=== PATIENT | male | born 1940 | race American Indian/Alaskan Native ===

== ENCOUNTER 2017-11-29 14:36 | Emergency (ER) | payer MEDICARE ==
[2017-11-29 14:45] VITALS: BP 190/97
[2017-11-29] MEDS ORDERED: ZOFRAN ODT PO ONE (18:11)
[2017-11-29] MEDS ORDERED: NORCO 5/325 PO ONE (18:11)
--- NOTE | 2017-11-29 18:16 | Emergency Department Report ---
ED General Adult HPI - General Chief complaint: Fall Stated complaint: BACK/LEG PAIN Time Seen by Provider: 11/29/17 17:38 Source: patient Mode of arrival: Ambulatory Limitations: No Limitations - History of Present Illness Initial comments: She presents to the emergency department with the complaint of right hip,lower back pain and tailbone pain status post a fall from a ladder last . Patient states the ladder was approximately 2 feet off the ground he denies hitting his head or any loss of consciousness. 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 -: Sudden Location: back, lower extremity Radiation: non-radiation Severity scale (0 -10): 5 Quality: sharp Consistency: constant Improves with: rest Worsens with: movement Associated Symptoms: denies other symptoms - Related Data Previous Rx's Medication Instructions Recorded Last Taken Type HYDROcodone/APAP 5-325 [[place] 1 each PO Q6HR PRN #20 tablet 11/29/17 Unknown Rx 5/325] Allergies Allergy/AdvReac Type Severity Reaction Status Date / Time No Known Allergies Allergy Unverified 11/29/17 14:46 ED Review of Systems ROS: Stated complaint: BACK/LEG PAIN Other details as noted in HPI Comment: All other systems reviewed and negative Constitutional: denies: chills, fever Eyes: denies: eye pain, eye discharge, vision change ENT: denies: ear pain, throat pain Respiratory: denies: cough, shortness of breath, wheezing Cardiovascular: denies: chest pain, palpitations Endocrine: no symptoms reported Gastrointestinal: denies: abdominal pain, nausea, diarrhea Genitourinary: denies: urgency, dysuria Musculoskeletal: back pain. denies: joint swelling, arthralgia Skin: denies: rash, lesions Neurological: denies: headache, weakness, paresthesias Psychiatric: denies: anxiety, depression Hematological/Lymphatic: denies: easy bleeding, easy bruising ED Past Medical Hx - Past Medical History Hx Hypertension: Yes Hx Arthritis: Yes (RA) Additional medical history: neuropathy,PVD - Surgical History Past Surgical History?: No Additional Surgical History: LLL stent r/t PVD - Social History Smoking Status: Never Smoker Substance Use Type: None - Medications Home Medications: Home Medications Medication Instructions Recorded Confirmed Last Taken Type HYDROcodone/APAP 5-325 [[place] 1 each PO Q6HR PRN #20 tablet 11/29/17 Unknown Rx 5/325] ED Physical Exam - General Limitations: No Limitations General appearance: alert, in no apparent distress - Head Head exam: Present: atraumatic, normocephalic - Eye Eye exam: Present: normal appearance - ENT ENT exam: Present: mucous membranes moist - Neck Neck exam: Present: normal inspection, full ROM. Absent: tenderness - Respiratory Respiratory exam: Present: normal lung sounds bilaterally. Absent: respiratory distress - Cardiovascular Cardiovascular Exam: Present: regular rate, normal rhythm. Absent: systolic murmur, diastolic murmur, rubs, gallop - GI/Abdominal GI/Abdominal exam: Present: soft, normal bowel sounds. Absent: distended, tenderness - Rectal Rectal exam: Present: deferred - Extremities Exam Extremities exam: Present: other (mild tenderness palpation of the right hip) - Back Exam Back exam: Present: normal inspection, other (tenderness palpation of the paralumbar region) - Neurological Exam Neurological exam: Present: alert, oriented X3 - Psychiatric Psychiatric exam: Present: normal affect, normal mood - Skin Skin exam: Present: warm, dry, intact, normal color. Absent: rash ED Course Vital Signs 11/29/17 11/29/17 11/29/17 14:39 18:18 19:15 Temperature 98.9 F Pulse Rate 78 Respiratory 18 16 18 Rate Blood Pressure 190/97 O2 Sat by Pulse 99 Oximetry ED Medical Decision Making - Medical Decision Making Discussed results with patient including the lumbar spine results X-ray results were reviewed and is not definite and this is an acute compression fracture OR IF it's indeterminate in age. Patient denies ever having any significant back pain prior to this Critical care attestation.: If time is entered above; I have spent that time in minutes in the direct care of this critically ill patient, excluding procedure time. ED Disposition Clinical Impression: Compression fracture of lumbar vertebra, Hip pain, right Disposition: DC-01 TO HOME OR SELFCARE Is pt being admited?: No Does the pt Need Aspirin: No Condition: Stable Instructions: Vertebral Compression Fracture (ED) Additional Instructions: return if worse Prescriptions: HYDROcodone/APAP 5-325 [[place] 5/325] 1 each PO Q6HR PRN #20 tablet PRN Reason: Pain Referrals: ZEFERINO STEWART MD [Primary Care Provider] - 3-5 Days PANCHITO DSOUZA MD [Staff Physician] - 3-5 Days Time of Disposition: 20:10
--- NOTE | 2017-11-29 19:54 | XRay Report ---
FINAL REPORT EXAM: XR HIP 2-3V RT HISTORY: pain s/p fall TECHNIQUE: Right hip and AP pelvis PRIORS: None. FINDINGS: No fracture identified. No dislocation seen. Femoral head maintains a normal contour. Joint spaces within normal limits. Adjacent bony pelvis is unremarkable IMPRESSION: Negative hip series
--- NOTE | 2017-11-29 20:04 | XRay Report ---
FINAL REPORT EXAM: XR SPINE LUMBOSACRAL 2-3V HISTORY: pain s/p fall TECHNIQUE: Lumbar spine three views PRIORS: None. FINDINGS: There is compression fracture L4 with approximately 40 percent loss of height centrally. Margins are distinct no definitive cortical disruption identified. No evidence for retropulsion. Noted are marked hypertrophic degenerative facet joint changes throughout the lumbar spine most prominent from L3-L4 through L5-S1. SI joints are intact. Posterior elements appear intact. 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
== END 2017-11-29 20:21 | disposition home or self-care (01) ==
LOC: ED 14:36
DX: S32.049A Unspecified fracture of fourth lumbar vertebra, initial encounter for closed fracture (principal); I10 Essential (primary) hypertension; M19.90 Unspecified osteoarthritis, unspecified site; G62.9 Polyneuropathy, unspecified; W11.XXXA Fall on and from ladder, initial encounter; Y93.89 Activity, other specified; Y92.89 Other specified places as the place of occurrence of the external cause; Y99.8 Other external cause status
CPT/HCPCS: 72100; 99283; Q0162

== ENCOUNTER 2017-12-23 09:54 | Outpatient (CLI) | payer MEDICARE ==
[2017-12-23] MEDS ORDERED: XYLOCAINE TOPICAL 4% TP ONE ×3 (10:51→16:04)
[2017-12-23] MEDS ORDERED: DAKIN'S FULL STRENGTH ONE (10:54)
[2017-12-23] MEDS ORDERED: AD OINTMENT TP ONE (12:01)
[2017-12-23] MEDS ORDERED: DAKIN'S FULL STRENGTH TP ONE (16:04)
[2017-12-30] MEDS ORDERED: DAKIN'S FULL STRENGTH TP ONE (13:42)
== END 2017-12-23 09:55 | disposition home or self-care (01) ==
LOC: WOUND 09:54
PROVIDERS: ATTEND Surgery
DX: I70.202 Unspecified atherosclerosis of native arteries of extremities, left leg (principal); L97.222 Non-pressure chronic ulcer of left calf with fat layer exposed; M19.90 Unspecified osteoarthritis, unspecified site; I87.2 Venous insufficiency (chronic) (peripheral); I10 Essential (primary) hypertension
CPT/HCPCS: A6250

== ENCOUNTER 2018-01-06 10:33 | Outpatient (CLI) | payer MEDICARE ==
[2018-01-06] MEDS ORDERED: XYLOCAINE TOPICAL 4% TP ONE ×2 (11:13→11:17)
[2018-01-08] MEDS ORDERED: AD OINTMENT TP SCH (10:00)
== END 2018-01-06 10:34 | disposition home or self-care (01) ==
LOC: WOUND 10:33
PROVIDERS: ATTEND Surgery
DX: I70.202 Unspecified atherosclerosis of native arteries of extremities, left leg (principal); L97.222 Non-pressure chronic ulcer of left calf with fat layer exposed; M19.90 Unspecified osteoarthritis, unspecified site; I87.2 Venous insufficiency (chronic) (peripheral); I10 Essential (primary) hypertension

== ENCOUNTER 2018-01-14 07:45 | Outpatient (CLI) | payer MEDICARE ==
[2018-01-14] MEDS ORDERED: XYLOCAINE TOPICAL 4% TP ONE ×2 (07:54→08:33)
== END 2018-01-14 07:46 | disposition home or self-care (01) ==
LOC: WOUND 07:45
PROVIDERS: ATTEND Surgery
DX: I70.202 Unspecified atherosclerosis of native arteries of extremities, left leg (principal); L97.222 Non-pressure chronic ulcer of left calf with fat layer exposed; M19.90 Unspecified osteoarthritis, unspecified site; I87.2 Venous insufficiency (chronic) (peripheral); I10 Essential (primary) hypertension
CPT/HCPCS: 29581

== ENCOUNTER 2018-01-17 08:56 | Outpatient (CLI) | payer MEDICARE | END 2018-01-17 08:57 | disposition home or self-care (01) | LOC: WOUND 08:56 | PROVIDERS: ATTEND Surgery | DX: I70.202 Unspecified atherosclerosis of native arteries of extremities, left leg (principal); L97.222 Non-pressure chronic ulcer of left calf with fat layer exposed; M19.90 Unspecified osteoarthritis, unspecified site; I87.2 Venous insufficiency (chronic) (peripheral); I10 Essential (primary) hypertension | CPT/HCPCS: 29581 ==

== ENCOUNTER 2018-01-20 10:59 | Outpatient (CLI) | payer MEDICARE ==
[2018-01-20] MEDS ORDERED: XYLOCAINE TOPICAL 4% TP ONE ×2 (11:12→11:46)
== END 2018-01-20 11:00 | disposition home or self-care (01) ==
LOC: WOUND 10:59
PROVIDERS: ATTEND Surgery
DX: I70.202 Unspecified atherosclerosis of native arteries of extremities, left leg (principal); L97.222 Non-pressure chronic ulcer of left calf with fat layer exposed; M19.90 Unspecified osteoarthritis, unspecified site; I87.2 Venous insufficiency (chronic) (peripheral); I10 Essential (primary) hypertension
CPT/HCPCS: 29581

== ENCOUNTER 2018-01-24 10:31 | Outpatient (CLI) | payer MEDICARE | END 2018-01-24 10:32 | disposition home or self-care (01) | LOC: WOUND 10:31 | PROVIDERS: ATTEND Surgery | DX: I70.202 Unspecified atherosclerosis of native arteries of extremities, left leg (principal); L97.222 Non-pressure chronic ulcer of left calf with fat layer exposed; M19.90 Unspecified osteoarthritis, unspecified site; I87.2 Venous insufficiency (chronic) (peripheral); I10 Essential (primary) hypertension | CPT/HCPCS: 29581 ==

== ENCOUNTER 2018-01-27 10:44 | Outpatient (CLI) | payer MEDICARE ==
[2018-01-27] MEDS ORDERED: XYLOCAINE TOPICAL 4% TP ONE ×2 (10:58→11:04)
[2018-01-27] MEDS ORDERED: AD OINTMENT TP PRN (10:59)
== END 2018-01-27 10:45 | disposition home or self-care (01) ==
LOC: WOUND 10:44
PROVIDERS: ATTEND Surgery
DX: I70.202 Unspecified atherosclerosis of native arteries of extremities, left leg (principal); L97.222 Non-pressure chronic ulcer of left calf with fat layer exposed; M19.90 Unspecified osteoarthritis, unspecified site; I87.2 Venous insufficiency (chronic) (peripheral); I10 Essential (primary) hypertension
CPT/HCPCS: 29581; A6250

== ENCOUNTER 2018-01-31 11:02 | Outpatient (CLI) | payer MEDICARE | END 2018-01-31 11:03 | disposition home or self-care (01) | LOC: WOUND 11:02 | PROVIDERS: ATTEND Surgery | DX: I70.202 Unspecified atherosclerosis of native arteries of extremities, left leg (principal); L97.222 Non-pressure chronic ulcer of left calf with fat layer exposed; M19.90 Unspecified osteoarthritis, unspecified site; I87.2 Venous insufficiency (chronic) (peripheral) | CPT/HCPCS: 29581 ==

== ENCOUNTER 2018-02-10 11:06 | Outpatient (CLI) | payer MEDICARE ==
[2018-02-10] MEDS ORDERED: XYLOCAINE TOPICAL 4% TP ONE ×2 (11:30→15:23)
== END 2018-02-10 11:07 | disposition home or self-care (01) ==
LOC: WOUND 11:06
PROVIDERS: ATTEND Surgery
DX: I70.202 Unspecified atherosclerosis of native arteries of extremities, left leg (principal); L97.222 Non-pressure chronic ulcer of left calf with fat layer exposed; M19.90 Unspecified osteoarthritis, unspecified site; I87.2 Venous insufficiency (chronic) (peripheral)
CPT/HCPCS: 29581

== ENCOUNTER 2018-02-14 11:47 | Outpatient (CLI) | payer MEDICARE | END 2018-02-14 11:48 | disposition home or self-care (01) | LOC: WOUND 11:47 | PROVIDERS: ATTEND Surgery | DX: I70.202 Unspecified atherosclerosis of native arteries of extremities, left leg (principal); L97.222 Non-pressure chronic ulcer of left calf with fat layer exposed; M19.90 Unspecified osteoarthritis, unspecified site; I87.2 Venous insufficiency (chronic) (peripheral) | CPT/HCPCS: 29581 ==

== ENCOUNTER 2018-06-24 12:17 | Outpatient (CLI) | payer MEDICARE ==
--- NOTE | 2018-06-24 15:03 | XRay Report ---
METASTATIC SURVEY:06/24/18 CLINICAL: Restaging evaluation COMPARISON: Right hip and lumbar spine x-rays from 11/29/17 FINDINGS: Lateral skull: 2 subcentimeter lucent skull lesions. Cervical spine: Negative except for extensive degenerative change. Thoracic spine: A single lucent lesion in the T11 vertebral body and a less definitive lucency in the T10 vertebral body. Lumbar spine: A severe L4 compression fracture with greater loss of height in the vertebral body since 11/29/17. A lucent lesion in the posterior aspect of vertebral body has a sclerotic rim. Chest and ribs: Negative Bilateral humerus: Negative Pelvis and hips: Negative Bilateral femur: Negative IMPRESSION: 1. Suspicious lucent lesions of the skull and thoracic spine. 2. Severe L4 mid wedge compression fracture with greater loss in height of the vertebral body since the last exam. The lucent lesion of the L4 vertebral body is of uncertain significance since it has a sclerotic rim.
== END 2018-06-24 12:18 | disposition home or self-care (01) ==
LOC: SPVIMAG 12:17
PROVIDERS: ATTEND Internal Medicine Hematology & Oncology
DX: M48.56XA Collapsed vertebra, not elsewhere classified, lumbar region, initial encounter for fracture (principal); D47.2 Monoclonal gammopathy; I10 Essential (primary) hypertension; M19.90 Unspecified osteoarthritis, unspecified site
CPT/HCPCS: 77074

== ENCOUNTER 2019-12-20 09:50 | Emergency (ER) | payer MEDICARE ==
[2019-12-20 10:33] VITALS: BP 148/72
--- NOTE | 2019-12-20 12:25 | Emergency Department Report ---
ED General Adult HPI - General Chief complaint: Skin Rash Stated complaint: POSBOB OAK OUTBREAK PUI?: No Time Seen by Provider: 12/20/19 11:54 Source: patient, RN notes reviewed Mode of arrival: Ambulatory Limitations: No Limitations - History of Present Illness Initial comments: The patient was evaluated in the emergency department for symptoms described in the history of present illness. He/she was evaluated in the context of the global COVID-19 pandemic, which necessitated consideration that the patient might be at risk for infection with the virus that causes COVID-19. Institutional protocols and algorithms that pertain to the evaluation of patients at risk for COVID-19 are in a state of rapid change based on infor mation released by regulatory bodies including the CDC and federal and state organizations. These policies and algorithms were followed during the patient's care in the emergency department. Please note that these policies, procedures and recommendations changed on a rapid basis. The patient is a pleasant [id number], 79-year-old gentleman, who has a history of hypertension, who presents to this ER with a complaint of nontraumatic bilateral upper extremity rash, that started in his right elbow, in the antecubital fossa, migrated distally, involve the left arm in a similar fashion, and also involves the left lower quadrant of his abdomen. He believes that he touched poison oak, or poison sumac this weekend. He believes that his contact with the plant has incited this rash. However, this is the first time he has had a rash associated with the plan. He denies headache, neck pain, chest pain, abdominal pain, oral/tongue/mouth pain, rectal pain, and dysuria. He does not have physical pain. He denies weakness and numbness. The rash is rather itchy. He states this is never happened to him before. His symptoms are constant, do not radiate anywhere, and they do not have exacerbating or relieving factors that he is aware of. -: days(s) Location: abdomen, left, right, upper extremity Radiation: non-radiation Quality: other (Pruritic and itchy) Consistency: constant Improves with: none Worsens with: none Associated Symptoms: denies other symptoms - Related Data Previous Rx's Medication Instructions Recorded Last Taken Type HYDROcodone/APAP 5-325 [[place] 1 each PO Q6HR PRN #20 tablet 11/29/17 Unknown Rx 5/325] Clobetasol Propionate [Clobex 1 applicatio TP BID #1 lotion 12/20/19 Unknown Rx 0.05%] Allergies Allergy/AdvReac Type Severity Reaction Status Date / Time No Known Allergies Allergy Unverified 11/29/17 14:46 ED Review of Systems ROS: Stated complaint: POSION OAK OUTBREAK Other details as noted in HPI Constitutional: denies: fever Eyes: denies: eye discharge ENT: denies: congestion Cardiovascular: denies: chest pain, syncope Gastrointestinal: denies: abdominal pain, hematemesis, melena, hematochezia Genitourinary: denies: dysuria Musculoskeletal: denies: arthralgia, myalgia Skin: rash, change in color Neurological: denies: weakness Psychiatric: as per HPI ED Past Medical Hx - Past Medical History Hx Hypertension: Yes Hx Arthritis: Yes Additional medical history: neuropathy,PVD - Surgical History Additional Surgical History: LLL stent r/t PVD - Social History Smoking Status: Never Smoker - Medications Home Medications: Home Medications Medication Instructions Recorded Confirmed Last Taken Type HYDROcodone/APAP 5-325 [[place] 1 each PO Q6HR PRN #20 tablet 11/29/17 Unknown Rx 5/325] Clobetasol Propionate [Clobex 1 applicatio TP BID #1 lotion 12/20/19 Unknown Rx 0.05%] ED Physical Exam - General Limitations: No Limitations General appearance: alert, in no apparent distress - Head Head exam: Present: atraumatic, normocephalic - Eye Eye exam: Present: normal appearance, EOMI. Absent: nystagmus - ENT ENT exam: Present: normal exam, normal orophraynx, mucous membranes moist, normal external ear exam - Neck Neck exam: Present: normal inspection, full ROM. Absent: tenderness, meningismus - Respiratory Respiratory exam: Present: normal lung sounds bilaterally. Absent: respiratory distress, wheezes, rales, rhonchi, stridor - Cardiovascular Cardiovascular Exam: Present: regular rate, normal rhythm, normal heart sounds. Absent: bradycardia, tachycardia, irregular rhythm, systolic murmur, diastolic murmur, rubs, gallop - GI/Abdominal GI/Abdominal exam: Present: soft, normal bowel sounds, other (Patient has nontender scaly lesions noted in the left lower quadrant, which are nonblanching, without vesicles, bullae, or tenderness). Absent: distended, tenderness, guarding, rebound, rigid, pulsatile mass - Rectal Rectal exam: Present: deferred - Extremities Exam Extremities exam: Present: full ROM, other (2+ pulses noted in the bilateral upper extremities. There is no long bony tenderness. The muscular compartments are soft. There is no pain with passive range of motion in bilateral upper or lower extremities. 2+ pulses appreciated in the right lower extremity.). Absent: normal inspection (Patient has erythematous nontender nonblanching lesions on her bilateral upper extremities and antecubital fossa. There are nontender fluid-filled bullae noted on her bilateral upper extremities distal to the elbow. Muscular compartments are soft. Full range of motion in the bilateral hands/digits/elbow/wrist.) - Back Exam Back exam: Present: normal inspection, full ROM. Absent: tenderness, CVA tenderness (R), CVA tenderness (L), paraspinal tenderness, vertebral tenderness - Neurological Exam Neurological exam: Present: alert, oriented X3, other (No facial droop. Tongue midline. Extraocular movements intact bilaterally. Facial sensation intact to light touch in V1, V2, V3 distribution bilaterally. 5 and a 5 strength in 4 extremities. Sensation intact to light touch in 4 extremities.) - Psychiatric Psychiatric exam: Present: normal affect, normal mood - Skin Skin exam: Present: warm, rash, erythema, other (Bullae are noted). Absent: vesicles, petechiae, pallor, abrasion, ecchymosis ED Course Vital Signs 12/20/19 10:27 Temperature 98.1 F Pulse Rate 77 Respiratory 18 Rate Blood Pressure 148/72 O2 Sat by Pulse 99 Oximetry ED Medical Decision Making - Medical Decision Making Differential diagnosis, including but not limited to: Thrombocytopenia, anemia, renal insufficiency, hepatic insufficiency, bullous pemphigoid, contact dermat itis Assessment and plan: 79-year-old gentleman who is afebrile, with reassuring vital signs, who is clinically sober, presenting with excoriated rash on his bilateral upper extremities and bullae. He is neurovascularly intact, does not have pain with passive range of motion, and has soft compartments. Pemphigoid versus extreme contact dermatitis are likely diagnoses. He denies oral pain, rectal pain, urinary symptoms, and he further endorses that he is not taking any medications except for as needed Benadryl, and an JEFFREY inhibitor for hypertension. I did recommend screening laboratory studies to assess for blood counts, renal and hepatic function. However, the patient is refusing this. The patient is alert and oriented x3, clinically sober and exhibits decision-making capacity. The risks of an incomplete ER evaluation, including , disability, paralysis, loss of quality of life were discussed with the patient. He verbalized understanding in his own words. We will start him on topical steroids. He is instructed to follow-up with an outpatient primary care doctor or poultry helper. The patient understands that he may return to the emergency room right away if and when he changes his mind. Patient was advised to follow-up with an outpatient primary care doctor or poultry helper as soon as possible. Return precautions were reviewed. Critical care attestation.: If time is entered above; I have spent that time in minutes in the direct care of this critically ill patient, excluding procedure time. ED Disposition Clinical Impression: Rash and nonspecific skin eruption Disposition: LEFT AGAINST MED ADVICE Is pt being admited?: No Does the pt Need Aspirin: No Condition: Undetermined Instructions: Contact Dermatitis (ED) Additional Instructions: As we discussed, you have left the hospital/emergency room AGAINST MEDICAL ADVICE. By leaving, you risked , disability, paralysis, permanent loss of quality of life. The ER is open 24 hours a day, 7 days a week. It never closes. Please return to the emergency room right away if and when you change your mind. If you decide not to return to the emergency room, please follow-up with the listed physician referrals as soon as possible. Avoid consumption of Motrin, ibuprofen, Naprosyn, Aleve. Recommend that patient follow-up with a primary care doctor outpatient poultry helper as soon as possible. Avoid consumption of alcohol. Avoid contact/exposure with plants such as poison oak, poison sumac, poison judy. Uncertain if patient has contact dermatitis or bullous pemphigoid, and will need to follow-up with a poultry helper to clarify diagnosis as soon as possible. Prescriptions: Clobetasol Propionate [Clobex 0.05%] 1 applicatio TP BID #1 lotion Referrals: [facility] [Provider Group] - 3-5 Days [facility] [Provider Group] - 3-5 Days
[2019-12-20] MEDS ORDERED: CLOBETASOL 0.05% CREAM 15 GM TP STA (14:56)
== END 2019-12-20 15:58 | disposition left against medical advice (07) ==
LOC: ED 09:50
DX: R21 Rash and other nonspecific skin eruption (principal); I10 Essential (primary) hypertension; M19.90 Unspecified osteoarthritis, unspecified site; Z79.899 Other long term (current) drug therapy
CPT/HCPCS: 99282

== ENCOUNTER 2020-12-04 08:16 | Outpatient (CLI) | payer MEDICARE, MEDICAID ==
[2020-12-04] MEDS ORDERED: LIDOCAINE (4%) 40 MG/ML TOPICAL SOLN 50 ML BOTTLE TP SCH (09:00)
== END 2020-12-04 08:17 | disposition home or self-care (01) ==
LOC: WOUND 08:16
PROVIDERS: ATTEND Surgery
DX: I87.312 Chronic venous hypertension (idiopathic) with ulcer of left lower extremity (principal); L97.822 Non-pressure chronic ulcer of other part of left lower leg with fat layer exposed; I10 Essential (primary) hypertension; M19.90 Unspecified osteoarthritis, unspecified site; Z72.89 Other problems related to lifestyle
CPT/HCPCS: 11042; 11045; G0463; 99214

== ENCOUNTER 2020-12-11 09:29 | Outpatient (CLI) | payer MEDICARE, MEDICAID ==
[2020-12-11] MEDS ORDERED: LIDOCAINE (4%) 40 MG/ML TOPICAL SOLN 50 ML BOTTLE TP ONE (10:06)
== END 2020-12-11 09:30 | disposition home or self-care (01) ==
LOC: WOUND 09:29
PROVIDERS: ATTEND Surgery
DX: I87.312 Chronic venous hypertension (idiopathic) with ulcer of left lower extremity (principal); L97.822 Non-pressure chronic ulcer of other part of left lower leg with fat layer exposed; M19.90 Unspecified osteoarthritis, unspecified site; Z72.89 Other problems related to lifestyle

== ENCOUNTER 2020-12-18 09:37 | Outpatient (CLI) | payer MEDICARE, MEDICAID ==
[2020-12-18] MEDS ORDERED: LIDOCAINE (4%) 40 MG/ML TOPICAL SOLN 50 ML BOTTLE TP SCH (10:00)
== END 2020-12-18 09:38 | disposition home or self-care (01) ==
LOC: WOUND 09:37
PROVIDERS: ATTEND Surgery
DX: I87.312 Chronic venous hypertension (idiopathic) with ulcer of left lower extremity (principal); L97.822 Non-pressure chronic ulcer of other part of left lower leg with fat layer exposed; M19.90 Unspecified osteoarthritis, unspecified site; Z72.89 Other problems related to lifestyle

== ENCOUNTER 2020-12-25 09:27 | Outpatient (CLI) | payer MEDICARE, MEDICAID ==
[2020-12-25] MEDS ORDERED: SODIUM HYPOCHLORITE, DAKIN'S FULL STRENGTH (0.5%) 473 ML TOPICAL SOLN TP ONE (10:01)
[2020-12-25] MEDS ORDERED: LIDOCAINE (4%) 40 MG/ML TOPICAL SOLN 50 ML BOTTLE TP ONE (10:01)
== END 2020-12-25 09:28 | disposition home or self-care (01) ==
LOC: WOUND 09:27
PROVIDERS: ATTEND Surgery
DX: I87.312 Chronic venous hypertension (idiopathic) with ulcer of left lower extremity (principal); L97.822 Non-pressure chronic ulcer of other part of left lower leg with fat layer exposed; M19.90 Unspecified osteoarthritis, unspecified site; Z72.89 Other problems related to lifestyle

== ENCOUNTER 2021-01-01 09:07 | Outpatient (CLI) | payer MEDICARE, MEDICAID ==
[2021-01-01] MEDS ORDERED: LIDOCAINE (4%) 40 MG/ML TOPICAL SOLN 50 ML BOTTLE TP ONE (09:48)
[2021-01-01] MEDS ORDERED: SODIUM HYPOCHLORITE, DAKIN'S FULL STRENGTH (0.5%) 473 ML TOPICAL SOLN TP SCH (10:30)
== END 2021-01-01 09:08 | disposition home or self-care (01) ==
LOC: WOUND 09:07
PROVIDERS: ATTEND Surgery
DX: I87.312 Chronic venous hypertension (idiopathic) with ulcer of left lower extremity (principal); L97.822 Non-pressure chronic ulcer of other part of left lower leg with fat layer exposed; M19.90 Unspecified osteoarthritis, unspecified site; Z72.89 Other problems related to lifestyle

== ENCOUNTER 2021-01-08 09:37 | Outpatient (CLI) | payer MEDICARE, MEDICAID ==
[2021-01-08] MEDS ORDERED: LIDOCAINE (4%) 40 MG/ML TOPICAL SOLN 50 ML BOTTLE TP ONE (09:49)
== END 2021-01-08 09:38 | disposition home or self-care (01) ==
LOC: WOUND 09:37
PROVIDERS: ATTEND Surgery
DX: I87.312 Chronic venous hypertension (idiopathic) with ulcer of left lower extremity (principal); L97.822 Non-pressure chronic ulcer of other part of left lower leg with fat layer exposed; M19.90 Unspecified osteoarthritis, unspecified site; Z72.89 Other problems related to lifestyle

== ENCOUNTER 2021-01-15 09:36 | Outpatient (CLI) | payer MEDICARE, MEDICAID ==
[2021-01-15] MEDS ORDERED: LIDOCAINE (4%) 40 MG/ML TOPICAL SOLN 50 ML BOTTLE TP ONE (09:51)
== END 2021-01-15 09:37 | disposition home or self-care (01) ==
LOC: WOUND 09:36
PROVIDERS: ATTEND Surgery
DX: I87.312 Chronic venous hypertension (idiopathic) with ulcer of left lower extremity (principal); L97.822 Non-pressure chronic ulcer of other part of left lower leg with fat layer exposed; M19.90 Unspecified osteoarthritis, unspecified site; Z72.89 Other problems related to lifestyle

== ENCOUNTER 2021-01-22 09:55 | Outpatient (CLI) | payer MEDICARE, MEDICAID ==
[2021-01-22] MEDS ORDERED: LIDOCAINE (4%) 40 MG/ML TOPICAL SOLN 50 ML BOTTLE TP ONE (09:58)
== END 2021-01-22 09:56 | disposition home or self-care (01) ==
LOC: WOUND 09:55
PROVIDERS: ATTEND Surgery
DX: I87.312 Chronic venous hypertension (idiopathic) with ulcer of left lower extremity (principal); L97.822 Non-pressure chronic ulcer of other part of left lower leg with fat layer exposed; M19.90 Unspecified osteoarthritis, unspecified site; Z72.89 Other problems related to lifestyle
CPT/HCPCS: 97597; 97598

== ENCOUNTER 2021-01-29 09:29 | Outpatient (CLI) | payer MEDICARE, MEDICAID ==
[2021-01-29] MEDS ORDERED: LIDOCAINE (4%) 40 MG/ML TOPICAL SOLN 50 ML BOTTLE TP SCH (13:30)
== END 2021-01-29 09:30 | disposition home or self-care (01) ==
LOC: WOUND 09:29
PROVIDERS: ATTEND Surgery
DX: I87.312 Chronic venous hypertension (idiopathic) with ulcer of left lower extremity (principal); L97.822 Non-pressure chronic ulcer of other part of left lower leg with fat layer exposed; M19.90 Unspecified osteoarthritis, unspecified site; Z72.89 Other problems related to lifestyle

== ENCOUNTER 2021-02-05 09:47 | Outpatient (CLI) | payer MEDICARE ==
[2021-02-05] MEDS ORDERED: LIDOCAINE (4%) 40 MG/ML TOPICAL SOLN 50 ML BOTTLE TP ONE (10:05)
== END 2021-02-05 09:48 | disposition home or self-care (01) ==
LOC: WOUND 09:47
PROVIDERS: ATTEND Surgery
DX: I87.312 Chronic venous hypertension (idiopathic) with ulcer of left lower extremity (principal); L97.822 Non-pressure chronic ulcer of other part of left lower leg with fat layer exposed; M19.90 Unspecified osteoarthritis, unspecified site; Z72.89 Other problems related to lifestyle

== ENCOUNTER 2021-02-12 09:35 | Outpatient (CLI) | payer MEDICARE, MEDICAID ==
[2021-02-12] MEDS ORDERED: LIDOCAINE (4%) 40 MG/ML TOPICAL SOLN 50 ML BOTTLE TP ONE (10:00)
== END 2021-02-12 09:36 | disposition home or self-care (01) ==
LOC: WOUND 09:35
PROVIDERS: ATTEND Surgery
DX: I87.312 Chronic venous hypertension (idiopathic) with ulcer of left lower extremity (principal); L97.822 Non-pressure chronic ulcer of other part of left lower leg with fat layer exposed; M19.90 Unspecified osteoarthritis, unspecified site; Z72.89 Other problems related to lifestyle

== ENCOUNTER 2021-02-19 10:39 | Outpatient (CLI) | payer MEDICARE, MEDICAID ==
[2021-02-19] MEDS ORDERED: LIDOCAINE (4%) 40 MG/ML TOPICAL SOLN 50 ML BOTTLE TP SCH (11:00)
== END 2021-02-19 10:40 | disposition home or self-care (01) ==
LOC: WOUND 10:39
PROVIDERS: ATTEND Surgery
DX: I87.312 Chronic venous hypertension (idiopathic) with ulcer of left lower extremity (principal); L97.822 Non-pressure chronic ulcer of other part of left lower leg with fat layer exposed; M19.90 Unspecified osteoarthritis, unspecified site; Z72.89 Other problems related to lifestyle

== ENCOUNTER 2021-02-26 10:30 | Outpatient (CLI) | payer MEDICARE, MEDICAID ==
[2021-02-26] MEDS ORDERED: LIDOCAINE (4%) 40 MG/ML TOPICAL SOLN 50 ML BOTTLE TP ONE (11:05)
== END 2021-02-26 10:31 | disposition home or self-care (01) ==
LOC: WOUND 10:30
PROVIDERS: ATTEND Surgery
DX: I87.312 Chronic venous hypertension (idiopathic) with ulcer of left lower extremity (principal); L97.822 Non-pressure chronic ulcer of other part of left lower leg with fat layer exposed; M19.90 Unspecified osteoarthritis, unspecified site; I87.2 Venous insufficiency (chronic) (peripheral); Z72.89 Other problems related to lifestyle

== ENCOUNTER 2021-03-05 10:36 | Outpatient (CLI) | payer MEDICARE, MEDICAID ==
[2021-03-05] MEDS ORDERED: LIDOCAINE (4%) 40 MG/ML TOPICAL SOLN 50 ML BOTTLE TP ONE (10:37)
== END 2021-03-05 10:37 | disposition home or self-care (01) ==
LOC: WOUND 10:36
PROVIDERS: ATTEND Surgery
DX: I87.312 Chronic venous hypertension (idiopathic) with ulcer of left lower extremity (principal); L97.822 Non-pressure chronic ulcer of other part of left lower leg with fat layer exposed; M19.90 Unspecified osteoarthritis, unspecified site; I87.2 Venous insufficiency (chronic) (peripheral); Z72.89 Other problems related to lifestyle

== ENCOUNTER 2021-03-12 10:22 | Outpatient (CLI) | payer MEDICARE, MEDICAID ==
[2021-03-12] MEDS ORDERED: LIDOCAINE (4%) 40 MG/ML TOPICAL SOLN 50 ML BOTTLE TP ONE (10:23)
== END 2021-03-12 10:23 | disposition home or self-care (01) ==
LOC: WOUND 10:22
PROVIDERS: ATTEND Surgery
DX: I87.312 Chronic venous hypertension (idiopathic) with ulcer of left lower extremity (principal); L97.822 Non-pressure chronic ulcer of other part of left lower leg with fat layer exposed; M19.90 Unspecified osteoarthritis, unspecified site; I87.2 Venous insufficiency (chronic) (peripheral); Z72.89 Other problems related to lifestyle

== ENCOUNTER 2021-03-19 10:40 | Outpatient (CLI) | payer MEDICARE, MEDICAID ==
[2021-03-19] MEDS ORDERED: LIDOCAINE (4%) 40 MG/ML TOPICAL SOLN 50 ML BOTTLE TP ONE (10:48)
== END 2021-03-19 10:41 | disposition home or self-care (01) ==
LOC: WOUND 10:40
PROVIDERS: ATTEND Surgery
DX: I87.312 Chronic venous hypertension (idiopathic) with ulcer of left lower extremity (principal); L97.822 Non-pressure chronic ulcer of other part of left lower leg with fat layer exposed; M19.90 Unspecified osteoarthritis, unspecified site; I87.2 Venous insufficiency (chronic) (peripheral); Z72.89 Other problems related to lifestyle

== ENCOUNTER 2021-03-26 10:28 | Outpatient (CLI) | payer MEDICARE ==
[2021-03-26] MEDS ORDERED: LIDOCAINE (4%) 40 MG/ML TOPICAL SOLN 50 ML BOTTLE TP ONE (10:33)
== END 2021-03-26 10:29 | disposition home or self-care (01) ==
LOC: WOUND 10:28
PROVIDERS: ATTEND Surgery
DX: I87.312 Chronic venous hypertension (idiopathic) with ulcer of left lower extremity (principal); L97.822 Non-pressure chronic ulcer of other part of left lower leg with fat layer exposed; M19.90 Unspecified osteoarthritis, unspecified site; I87.2 Venous insufficiency (chronic) (peripheral); Z72.89 Other problems related to lifestyle

== ENCOUNTER 2021-04-02 10:36 | Outpatient (CLI) | payer MEDICARE ==
[2021-04-02] MEDS ORDERED: LIDOCAINE (4%) 40 MG/ML TOPICAL SOLN 50 ML BOTTLE TP ONE (10:37)
== END 2021-04-02 10:37 | disposition home or self-care (01) ==
LOC: WOUND 10:36
PROVIDERS: ATTEND Surgery
DX: I87.312 Chronic venous hypertension (idiopathic) with ulcer of left lower extremity (principal); L97.822 Non-pressure chronic ulcer of other part of left lower leg with fat layer exposed; M19.90 Unspecified osteoarthritis, unspecified site; I87.2 Venous insufficiency (chronic) (peripheral); Z72.89 Other problems related to lifestyle

== ENCOUNTER 2021-04-09 10:40 | Outpatient (CLI) | payer MEDICARE ==
[2021-04-09] MEDS ORDERED: LIDOCAINE (4%) 40 MG/ML TOPICAL SOLN 50 ML BOTTLE TP ONE (10:42)
== END 2021-04-09 10:41 | disposition home or self-care (01) ==
LOC: WOUND 10:40
PROVIDERS: ATTEND Surgery
DX: I87.312 Chronic venous hypertension (idiopathic) with ulcer of left lower extremity (principal); L97.822 Non-pressure chronic ulcer of other part of left lower leg with fat layer exposed; M19.90 Unspecified osteoarthritis, unspecified site; I87.2 Venous insufficiency (chronic) (peripheral); Z72.89 Other problems related to lifestyle

== ENCOUNTER 2021-04-16 10:52 | Outpatient (CLI) | payer MEDICARE, MEDICAID ==
[2021-04-16] MEDS ORDERED: LIDOCAINE (4%) 40 MG/ML TOPICAL SOLN 50 ML BOTTLE TP ONE (10:53)
== END 2021-04-16 10:53 | disposition home or self-care (01) ==
LOC: WOUND 10:52
PROVIDERS: ATTEND Surgery
DX: I87.312 Chronic venous hypertension (idiopathic) with ulcer of left lower extremity (principal); L97.822 Non-pressure chronic ulcer of other part of left lower leg with fat layer exposed; M19.90 Unspecified osteoarthritis, unspecified site; I87.2 Venous insufficiency (chronic) (peripheral); Z72.89 Other problems related to lifestyle

== ENCOUNTER 2021-04-30 10:28 | Outpatient (CLI) | payer MEDICARE, MEDICAID ==
[2021-04-30] MEDS ORDERED: LIDOCAINE (4%) 40 MG/ML TOPICAL SOLN 50 ML BOTTLE TP ONE (10:32)
[2021-04-30] MEDS ORDERED: VITAMIN A & D OINT 56.7 GM TP SCH (12:00)
== END 2021-04-30 10:29 | disposition home or self-care (01) ==
LOC: WOUND 10:28
PROVIDERS: ATTEND Surgery
DX: I87.312 Chronic venous hypertension (idiopathic) with ulcer of left lower extremity (principal); L97.822 Non-pressure chronic ulcer of other part of left lower leg with fat layer exposed; M19.90 Unspecified osteoarthritis, unspecified site; I87.2 Venous insufficiency (chronic) (peripheral); Z72.89 Other problems related to lifestyle

== ENCOUNTER 2021-05-07 10:40 | Outpatient (CLI) | payer MEDICARE, MEDICAID ==
[2021-05-07] MEDS ORDERED: LIDOCAINE (4%) 40 MG/ML TOPICAL SOLN 50 ML BOTTLE TP ONE (10:45)
== END 2021-05-07 10:41 | disposition home or self-care (01) ==
LOC: WOUND 10:40
PROVIDERS: ATTEND Surgery
DX: I87.312 Chronic venous hypertension (idiopathic) with ulcer of left lower extremity (principal); L97.822 Non-pressure chronic ulcer of other part of left lower leg with fat layer exposed; M19.90 Unspecified osteoarthritis, unspecified site; L84 Corns and callosities; I87.2 Venous insufficiency (chronic) (peripheral); Z72.89 Other problems related to lifestyle

== ENCOUNTER 2021-05-21 10:36 | Outpatient (CLI) | payer MEDICARE ==
[2021-05-21] MEDS ORDERED: LIDOCAINE (4%) 40 MG/ML TOPICAL SOLN 50 ML BOTTLE TP ONE (11:09)
== END 2021-05-21 10:37 | disposition home or self-care (01) ==
LOC: WOUND 10:36
PROVIDERS: ATTEND Surgery
DX: I87.312 Chronic venous hypertension (idiopathic) with ulcer of left lower extremity (principal); L97.822 Non-pressure chronic ulcer of other part of left lower leg with fat layer exposed; M19.90 Unspecified osteoarthritis, unspecified site; L84 Corns and callosities; I87.2 Venous insufficiency (chronic) (peripheral); Z72.89 Other problems related to lifestyle

== ENCOUNTER 2021-05-28 10:36 | Outpatient (CLI) | payer MEDICARE, MEDICAID | END 2021-05-28 10:37 | disposition home or self-care (01) | LOC: WOUND 10:36 | PROVIDERS: ATTEND Surgery | DX: I87.312 Chronic venous hypertension (idiopathic) with ulcer of left lower extremity (principal); L97.822 Non-pressure chronic ulcer of other part of left lower leg with fat layer exposed; L84 Corns and callosities; I87.2 Venous insufficiency (chronic) (peripheral); M19.90 Unspecified osteoarthritis, unspecified site; Z79.899 Other long term (current) drug therapy ==

== ENCOUNTER 2021-07-16 11:33 | Outpatient (CLI) | payer MEDICARE ==
[2021-07-16] MEDS ORDERED: LIDOCAINE (4%) 40 MG/ML TOPICAL SOLN 50 ML BOTTLE TP SCH (12:30)
== END 2021-07-16 11:34 | disposition home or self-care (01) ==
LOC: WOUND 11:33
PROVIDERS: ATTEND Surgery
DX: I87.312 Chronic venous hypertension (idiopathic) with ulcer of left lower extremity (principal); L97.822 Non-pressure chronic ulcer of other part of left lower leg with fat layer exposed; L84 Corns and callosities; I87.2 Venous insufficiency (chronic) (peripheral); M19.90 Unspecified osteoarthritis, unspecified site; Z79.899 Other long term (current) drug therapy